=== PATIENT | male | born 1980 | race Caucasian/White ===

== ENCOUNTER → 2019-06-02 16:16 | Outpatient (CLI) | payer OTHER, SELFPAY ==
[2019-06-03 23:06] LABS: COVID19 Sendout Not Detected (Not Detected)
== END ==
PROVIDERS: PCP Family Medicine; Visit Provider Physician Assistant
DX: Z20.828 Contact with and (suspected) exposure to other viral communicable diseases (principal)
CPT/HCPCS: 87635

== ENCOUNTER → 2024-01-08 18:06 | Outpatient (CLI) | payer BC, SELFPAY | PROVIDERS: PCP Family Medicine; Visit Provider Physician Assistant Surgical | DX: L03.115 Cellulitis of right lower limb (principal); T14.8XXA Other injury of unspecified body region, initial encounter | CPT/HCPCS: 87070; 87075; 87077; 87147; 87186; 87205 ==